=== PATIENT | female | born 1970 | race African-American/Black ===

== ENCOUNTER 2017-07-19 08:47 | Emergency (ER) | payer MEDICAID, OTHER ==
[~2017-07-19] VITALS: Ht 157.5 cm; Wt 81.0 kg
[2017-07-19] MEDS ORDERED: ACETAMINOPHEN 500MG TABLET PO ONE (09:45)
[2017-07-19] MEDS ORDERED: KETOROLAC 15MG/ML VIAL IM ONE (09:45)
[2017-07-19] MEDS ORDERED: ACETAMINOPHEN WITH CODEINE 300/30MG TABLET PO ONE (10:15)
[2017-07-19 11:08] VITALS: BP 156/88
== END 2017-07-19 11:10 | disposition home or self-care (01) ==
LOC: ER 08:56
DX: M54.16 Radiculopathy, lumbar region (principal); I10 Essential (primary) hypertension; F17.200 Nicotine dependence, unspecified, uncomplicated
CPT/HCPCS: 81025; 96372; 99283; J1885

== ENCOUNTER 2017-08-02 15:31 | Inpatient (IN) | payer MEDICAID ==
[~2017-08-02] VITALS: Ht 157.5 cm; Wt 83.1 kg
[2017-08-02] MEDS ORDERED: METHYLPREDNISOLONE SOD SUCC 125 MG/2 ML VIAL IV ONE (16:30)
[2017-08-02] MEDS ORDERED: FAMOTIDINE 20MG/2ML VIAL IV ONE (16:30)
[2017-08-02] MEDS ORDERED: DIPHENHYDRAMINE 50MG/ML VIAL IV ONE (16:30)
[2017-08-02 17:09] LABS: BASOPHILS % 0.4 % (0.0-2.0); HEMATOCRIT. 35.9 % (36.0-48.0); HEMOGLOBIN. 12.2 g/dL (12.0-16.0); LYMPHOCYTES % 42.7 % (20.0-50.0); MEAN CORPUSCULAR HEMOGLOBIN 32.5 pg (28.0-32.0); MEAN CORPUSCULAR VOLUME 95.3 fL (81.0-99.0); MEAN PLATELET VOLUME 7.7 fl (7.4-10.4); MONOCYTES % 8.8 % (2.0-8.0); NEUTROPHILS % 47.1 % (40.0-76.0); PLATELET 432 x1000/uL (130-400); RED BLOOD CELL COUNT 3.76 mill/uL (4.2-5.4); RED CELL DISTRIBUTION WIDTH 12.5 % (11.6-14.6)
[2017-08-02 17:11] LABS: CHLORIDE 103 mEq/L (98-107)
[2017-08-02 17:19] LABS: CARBON DIOXIDE 31 mEq/L (21-32)
[2017-08-02 21:59] VITALS: BP 141/82
[2017-08-03] VITALS (8 sets, daily range): BP systolic 115–178; BP diastolic 51–97
[2017-08-03] MEDS ORDERED: MAGNESIUM/ALUMINUM HYDROXIDE/SIMETHICONE 30ML UDC PO PRN
[2017-08-03] MEDS ORDERED: ONDANSETRON HCL 4MG/2ML VIAL IV PRN
[2017-08-03] MEDS ORDERED: DOCUSATE SODIUM 100MG CAPSULE PO PRN
[2017-08-03] MEDS ORDERED: CLONIDINE 0.1MG TABLET PO PRN
[2017-08-03] MEDS ORDERED: ACETAMINOPHEN 325MG TABLET PO PRN
[2017-08-03] MEDS ORDERED: IPRATROPIUM/ALBUTEROL 0.5-3(2.5)MG/3ML NEB INH PRN
[2017-08-03] MEDS ORDERED: POTASSIUM CHLORIDE 20MEQ TABLET SR PO NR (01:00)
[2017-08-03] MEDS ORDERED: HYDR25TA PO (03:20)
[2017-08-03] MEDS ORDERED: AMLO10TA80 PO (03:22)
[2017-08-03] MEDS ORDERED: LISI-604 PO (03:23)
[2017-08-03 03:59] LABS: BASOPHILS % 0.3 % (0.0-2.0); EOSINOPHILS % 0.3 % (0.0-5.0); HEMATOCRIT. 40.4 % (36.0-48.0); HEMOGLOBIN. 13.6 g/dL (12.0-16.0); LYMPHOCYTES % 13.2 % (20.0-50.0); MEAN CORPUSCULAR HEMOGLOBIN 32.1 pg (28.0-32.0); MEAN CORPUSCULAR VOLUME 95.5 fL (81.0-99.0); MEAN PLATELET VOLUME 7.7 fl (7.4-10.4); MONOCYTES % 1.7 % (2.0-8.0); NEUTROPHILS % 84.5 % (40.0-76.0); PLATELET 450 x1000/uL (130-400); RED BLOOD CELL COUNT 4.23 mill/uL (4.2-5.4); RED CELL DISTRIBUTION WIDTH 12.6 % (11.6-14.6)
[2017-08-03 04:01] LABS: CARBON DIOXIDE 26 mEq/L (21-32); CHLORIDE 104 mEq/L (98-107); CREATINE KINASE 112 IU/L (26-192); HDL CHOLESTEROL 68 mg/dL (40-59); LDL CHOLESTEROL 183 mg/dL (5-100); TROPONIN I < 0.02 ng/mL (0.00-0.04)
[2017-08-03 04:07] LABS: CREATINE KINASE MB FRACTION 0.6 ng/mL (0.5-3.6)
[2017-08-03] MEDS: METHYLPREDNISOLONE SOD SUCC 40 MG/ML VIAL IV SCH ×3 (05:54→21:32)
[2017-08-03] MEDS: FAMOTIDINE 20MG/2ML VIAL IV SCH ×2 (08:44→21:32)
[2017-08-03] MEDS ORDERED: AMLODIPINE 5MG TABLET PO SCH (09:00)
[2017-08-03] MEDS ORDERED: ENOXAPARIN 40MG/0.4ML SYR SUBCUT SCH (09:00)
[2017-08-03 09:44] LABS: T4 FREE 0.99 ng/dL (0.76-1.46)
[2017-08-03] MEDS ORDERED: NIFEDIPINE XL 60MG TAB PO NR (16:15)
[2017-08-03 16:33] LABS: CREATINE KINASE 93 IU/L (26-192); CREATINE KINASE MB FRACTION 0.6 ng/mL (0.5-3.6); TROPONIN I < 0.02 ng/mL (0.00-0.04)
[2017-08-03] MEDS ORDERED: ATORVASTATIN CALCIUM 20MG TABLET PO SCH (21:00)
[2017-08-03] MEDS ORDERED: ATOR20TA PO (21:02)
[2017-08-03] MEDS ORDERED: NIFE90TA34 PO (21:02)
[2017-08-04] VITALS: BP 135/76
[2017-08-04] MEDS ORDERED: FAMO40TA70 PO (00:19)
[2017-08-04] MEDS ORDERED: P20 PO (00:19)
[2017-08-04 03:32] VITALS: BP 140/87
[2017-08-04 04:00] VITALS: BP 140/87
[2017-08-04] MEDS: METHYLPREDNISOLONE SOD SUCC 40 MG/ML VIAL IV SCH (05:06)
[2017-08-04] MEDS ORDERED: NIFEDIPINE XL 60MG TAB PO SCH (09:00)
== END 2017-08-04 08:25 | disposition home or self-care (01) | DRG 811 ==
LOC: ER 16:06 → 5WST 16:31 → EDBEDREQ 17:34 → ENRESERV 19:32
PROVIDERS: ADMIT Internal Medicine; ATTEND Internal Medicine
PROC: 30233L1 Transfusion of Nonautologous Fresh Plasma into Peripheral Vein, Percutaneous Approach (ICD-10-PCS; principal; 2017-08-02)
PROC: 30233K1 Transfusion of Nonautologous Frozen Plasma into Peripheral Vein, Percutaneous Approach (ICD-10-PCS; 2017-08-02)
DX: T78.3XXA Angioneurotic edema, initial encounter (principal); I10 Essential (primary) hypertension; E78.5 Hyperlipidemia, unspecified; E78.00 Pure hypercholesterolemia, unspecified; E87.6 Hypokalemia; F17.200 Nicotine dependence, unspecified, uncomplicated; Z79.899 Other long term (current) drug therapy
CPT/HCPCS: 36415; 71010; 80048; 80053; 80061; 82550; 82553; 83735; 84439; 84443; 84481; 84484; 85025; 85610; 86850; 86900; 86927; 93970; 96374; 96375; 99285; J1200; J1650; J2920; J2930; J3490; J7050; P9017

== ENCOUNTER 2020-11-23 08:50 | Emergency (ER) | payer MEDICAID ==
[~2020-11-23] VITALS: Ht 157.5 cm; Wt 84.0 kg
[~2020-11-23 08:50] MED LIST: ATOR20TA PO; FAMO40TA70 PO; NIFE90TA60 PO; P20 PO
[2020-11-23] MEDS ORDERED: ACETAMINOPHEN 325MG TABLET PO ONE (11:30)
[2020-11-23 11:57] VITALS: BP 155/81
== END 2020-11-23 11:57 | disposition home or self-care (01) ==
LOC: ER 08:50
DX: M17.12 Unilateral primary osteoarthritis, left knee (principal); E78.00 Pure hypercholesterolemia, unspecified; I10 Essential (primary) hypertension; Z79.899 Other long term (current) drug therapy
CPT/HCPCS: 73562; 99283

== ENCOUNTER 2023-11-12 10:15 | Emergency (ER) | payer MEDICAID ==
[~2023-11-12] VITALS: Ht 160 cm; Wt 76.0 kg
[2023-11-12 10:23] VITALS: BP 166/108; PULSE 97; RESP 20; TEMP 98; O2SAT 100
[2023-11-12] MEDS ORDERED: IBUP-2030 MT (10:59)
== END 2023-11-12 11:08 | disposition home or self-care (01) ==
LOC: ER 10:54
DX: L60.0 Ingrowing nail (principal); E78.00 Pure hypercholesterolemia, unspecified; I10 Essential (primary) hypertension; Z88.8 Allergy status to other drugs, medicaments and biological substances; Z98.890 Other specified postprocedural states
CPT/HCPCS: 99282

== ENCOUNTER 2024-04-17 11:19 | Emergency (ER) | payer BC, MEDICAID ==
[~2024-04-17] VITALS: Ht 167.6 cm; Wt 81.0 kg
[~2024-04-17 11:19] MED LIST changes: +IBUP-2030 MT
[2024-04-17 11:24] VITALS: O2SAT 99
[2024-04-17 11:28] VITALS: BP 154/91; PULSE 86; RESP 18; TEMP 98.5; O2SAT 99
== END 2024-04-17 14:31 | disposition home or self-care (01) ==
LOC: ER 11:19
DX: D16.9 Benign neoplasm of bone and articular cartilage, unspecified (principal); R44.8 Other symptoms and signs involving general sensations and perceptions; I10 Essential (primary) hypertension; E78.00 Pure hypercholesterolemia, unspecified; Z88.6 Allergy status to analgesic agent; Z98.890 Other specified postprocedural states
CPT/HCPCS: 73562; 73630; 99284